=== PATIENT | male | born 1945 | race Caucasian/White ===

== ENCOUNTER 2016-08-02 19:14 | Emergency (ER) | payer MEDICARE, OTHER ==
[2016-08-02] MEDS ORDERED: PROPARACAINE HCL 0.5% 300 GTTS/BOT SOLN.DROP ONE (19:42)
== END 2016-08-02 20:14 | disposition home or self-care (01) ==
LOC: ED 19:14
DX: T15.12XA Foreign body in conjunctival sac, left eye, initial encounter (principal); S00.252A Superficial foreign body of left eyelid and periocular area, initial encounter; X58.XXXA Exposure to other specified factors, initial encounter; Y93.I9 Activity, other involving external motion; Y92.39 Other specified sports and athletic area as the place of occurrence of the external cause
CPT/HCPCS: 99282 ×2; A9270